=== PATIENT | female | born 1985 | race Caucasian/White ===

== ENCOUNTER 2017-05-18 21:17 | Emergency (ER) | payer MEDICAID ==
[~2017-05-18] VITALS: Ht 170.2 cm; Wt 47.2 kg
[~2017-05-18 21:17] MED LIST: IBUPROFEN 800800 MG PO; NOHOMEMEDICATIONS
[2017-05-18 22:53] VITALS: BP 107/75
== END 2017-05-18 22:54 | disposition home or self-care (01) ==
LOC: M.ERS 21:17
DX: O90.89 Other complications of the puerperium, not elsewhere classified (principal); N89.8 Other specified noninflammatory disorders of vagina; F17.210 Nicotine dependence, cigarettes, uncomplicated

== ENCOUNTER 2017-09-16 16:38 | Emergency (ER) | payer OTHER, MEDICAID ==
[~2017-09-16] VITALS: Ht 170.2 cm; Wt 65.8 kg
[2017-09-16 16:51] VITALS: BP 124/78
== END 2017-09-16 17:04 | disposition home or self-care (01) ==
LOC: M.ERS 16:38
DX: Z53.21 Procedure and treatment not carried out due to patient leaving prior to being seen by health care provider (principal)